=== PATIENT | female | born 1945 | race Caucasian/White ===

== ENCOUNTER 2017-07-09 13:23 | Emergency (ER) | payer OTHER ==
[~2017-07-09] VITALS: Ht 165.1 cm; Wt 87.0 kg
[~2017-07-09 13:23] MED LIST: ATEN-102 PO; CIPR500T4 PO; COZA50TA PO; LEVO.075 PO; LORTA5 PO; MEDR4PAK3 PO; METR-1 PO; MEVA40TA PO; PROT40TA PO; ZOFR4TAB3 SL
[2017-07-09 13:31] VITALS: BP 182/78; PULSE 60; RESP 16; TEMP 98.8; O2SAT 95
--- NOTE | 2017-07-09 13:56 | PD ---
HPI Chief Complaint: Abnormal Results Time Seen by Provider: 13:36 Travel History International Travel<30 days: No Contact w/Intl Traveler<30days: No Traveled to known affect area: No History of Present Illness HPI The patient is a 71-year-old female who presents to the emergency department for elevated blood pressure, headache, and right arm discomfort. The patient was born deaf, daughter translating at bedside with sign language per her request. The patient states she has a history of hypertension, currently takes atenolol, but stopped taking her other medications because they "didn't work out "according to the daughter who is translating. The patient states earlier today she had mild lightheadedness and dizziness, also noticed some right arm discomfort. However, the patient is had some right arm discomfort recently in the shoulder after she fell. The patient states that since she arrived her symptoms have resolved. She denied any chest pain, shortness breath, nausea, vomiting, or focal weakness. She does have a history of bilateral lower extremity neuropathy for 5 years. Symptoms are mild to moderate, possibly exacerbated by elevated blood pressure, and self alleviating. The daughter does state that the patient's systolic blood pressure was greater than 200 prior to arrival. PFSH Past Medical History Hx Anticoagulant Therapy: No Anxiety: No Depression: No Cancer: Yes (HX, UNKNOWN TO WHAT TYPE. 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) Respiratory: No Radiation Therapy: No Thyroid Disease: Yes (HYPOTHYROID) Menopausal: Yes Past Surgical History Abdominal Surgery: Yes (GALLBLADDER) Cardiac Surgery: No Cholecystectomy: Yes Ear Surgery: No Endocrine Surgery: No Eye Surgery: No Genitourinary Surgery: No Gynecologic Surgery: Yes (HYSTERECTOMY) Hysterectomy: Yes Neurologic Surgery: No Oral Surgery: No Thoracic Surgery: No Other Surgery: Yes (BILATERAL CARPAL TUNNEL REPAIR) Social History Alcohol Use: No Tobacco Use: No Substance Use: No Allergies-Medications (Allergen,Severity, Reaction): Coded Allergies: No Known Allergies (Verified Adverse Reaction, Unknown, 07/09/17) Reported Meds & Prescriptions Reported Meds & Active Scripts Active Reported Cozaar (Losartan Potassium) 50 Mg Tab 50 Mg PO DAILY Synthroid (Levothyroxine Sodium) 75 Mcg Tab 75 Mcg PO DAILY Lovastatin 40 Mg Tab 40 Mg PO DAILY Atenolol 50 Mg Tab 50 Mg PO BID Review of Systems Except as stated in HPI: all other systems reviewed are Neg Eyes: No: Blurred Vision HENT: Positive: Lightheadedness, Other (congenitally deaf), No: Headaches Cardiovascular: No: Chest Pain or Discomfort Respiratory: No: Shortness of Breath Gastrointestinal: No: Nausea, Vomiting Musculoskeletal: Positive: Pain (right upper extremity pain), No: Weakness Neurologic: Positive: Other (history of chronic neuropathy 5 years of the lower extremity is bilaterally), No: Paresthesia, Sensory Disturbance Physical Exam Narrative GENERAL: Awake, alert, pleasant 71-year-old female appears her stated age and is in no acute respiratory distress. Unable to hear me. SKIN: Focused skin assessment warm/dry. HEAD: Atraumatic. Normocephalic. EYES: Pupils equal and round. Pupils are 3 mm bilateral and reactive. ENT: No nasal bleeding or discharge. Mucous membranes pink and moist. NECK: Trachea midline. No JVD. No meningeal signs. CARDIOVASCULAR: Regular rate and rhythm. No murmur appreciated. RESPIRATORY: No accessory muscle use. Clear to auscultation. Breath sounds equal bilaterally. GASTROINTESTINAL: Abdomen soft, non-tender, nondistended. No rebound tenderness. MUSCULOSKELETAL: No obvious deformities. No clubbing. No cyanosis. No edema. NEUROLOGICAL: Awake and alert. Unable to hear me. Motor grossly within normal limits. Normal speech. Follows commands without difficulty. Nonfocal. PSYCHIATRIC: Appropriate mood and affect; insight and judgment normal. Data Data Last Documented VS Vital Signs Date Time Temp Pulse Resp B/P (MAP) Pulse Ox O2 Delivery O2 Flow Rate FiO2 07/09/17 14:45 97 Room Air 07/09/17 14:44 54 15 07/09/17 13:31 98.8 Orders Orders Electrocardiogram (07/09/17 13:49) Complete Blood Count With Diff (07/09/17 13:49) Comprehensive Metabolic Panel (07/09/17 13:49) Magnesium (Mg) (07/09/17 13:49) Ckmb (Isoenzyme) Profile (07/09/17 13:49) Troponin I (07/09/17 13:49) Ct Brain W/O Iv Contrast(Rout) (07/09/17 13:49) Ecg Monitoring (07/09/17 13:49) Iv Access Insert/Monitor (07/09/17 13:49) Oximetry (07/09/17 13:49) Sodium Chloride 0.9% Flush (Ns Flush) (07/09/17 14:00) CKMB (07/09/17 13:58) CKMB% (07/09/17 13:58) Labs Laboratory Tests Test 07/09/17 13:58 White Blood Count 5.2 TH/MM3 Red Blood Count 4.29 MIL/MM3 Hemoglobin 12.1 GM/DL Hematocrit 36.3 % Mean Corpuscular Volume 84.6 FL Mean Corpuscular Hemoglobin 28.3 PG Mean Corpuscular Hemoglobin Concent 33.4 % Red Cell Distribution Width 13.2 % Platelet Count 196 TH/MM3 Mean Platelet Volume 7.1 FL Neutrophils (%) (Auto) 64.5 % Lymphocytes (%) (Auto) 23.9 % Monocytes (%) (Auto) 9.5 % Eosinophils (%) (Auto) 1.2 % Basophils (%) (Auto) 0.9 % Neutrophils # (Auto) 3.4 TH/MM3 Lymphocytes # (Auto) 1.2 TH/MM3 Monocytes # (Auto) 0.5 TH/MM3 Eosinophils # (Auto) 0.1 TH/MM3 Basophils # (Auto) 0.0 TH/MM3 CBC Comment DIFF FINAL Differential Comment Blood Urea Nitrogen 13 MG/DL Creatinine 1.00 MG/DL Random Glucose 92 MG/DL Total Protein 7.4 GM/DL Albumin 3.7 GM/DL Calcium Level 8.6 MG/DL Magnesium Level 2.3 MG/DL Alkaline Phosphatase 122 U/L Aspartate Amino Transf (AST/SGOT) 18 U/L Alanine Aminotransferase (ALT/SGPT) 29 U/L Total Bilirubin 0.9 MG/DL Sodium Level 139 MEQ/L Potassium Level 4.2 MEQ/L Chloride Level 103 MEQ/L Carbon Dioxide Level 28.6 MEQ/L Anion Gap 7 MEQ/L Estimat Glomerular Filtration Rate 54 ML/MIN Total Creatine Kinase 109 U/L Creatine Kinase MB 2.2 NG/ML Troponin I LESS THAN 0.02 NG/ML MDM Medical Decision Making Medical Screen Exam Complete: Yes Emergency Medical Condition: Yes Medical Record Reviewed: Yes Interpretation(s) EKG reveals sinus bradycardia with a heart rate of 51. Inverted T-wave in lead 3. Laboratory Tests Test 07/09/17 13:58 White Blood Count 5.2 TH/MM3 Red Blood Count 4.29 MIL/MM3 Hemoglobin 12.1 GM/DL Hematocrit 36.3 % Mean Corpuscular Volume 84.6 FL Mean Corpuscular Hemoglobin 28.3 PG Mean Corpuscular Hemoglobin Concent 33.4 % Red Cell Distribution Width 13.2 % Platelet Count 196 TH/MM3 Mean Platelet Volume 7.1 FL Neutrophils (%) (Auto) 64.5 % Lymphocytes (%) (Auto) 23.9 % Monocytes (%) (Auto) 9.5 % Eosinophils (%) (Auto) 1.2 % Basophils (%) (Auto) 0.9 % Neutrophils # (Auto) 3.4 TH/MM3 Lymphocytes # (Auto) 1.2 TH/MM3 Monocytes # (Auto) 0.5 TH/MM3 Eosinophils # (Auto) 0.1 TH/MM3 Basophils # (Auto) 0.0 TH/MM3 CBC Comment DIFF FINAL Differential Comment Blood Urea Nitrogen 13 MG/DL Creatinine 1.00 MG/DL Random Glucose 92 MG/DL Total Protein 7.4 GM/DL Albumin 3.7 GM/DL Calcium Level 8.6 MG/DL Magnesium Level 2.3 MG/DL Alkaline Phosphatase 122 U/L Aspartate Amino Transf (AST/SGOT) 18 U/L Alanine Aminotransferase (ALT/SGPT) 29 U/L Total Bilirubin 0.9 MG/DL Sodium Level 139 MEQ/L Potassium Level 4.2 MEQ/L Chloride Level 103 MEQ/L Carbon Dioxide Level 28.6 MEQ/L Anion Gap 7 MEQ/L Estimat Glomerular Filtration Rate 54 ML/MIN Total Creatine Kinase 109 U/L Creatine Kinase MB 2.2 NG/ML Troponin I LESS THAN 0.02 NG/ML CT of the brain reveals no acute intracranial disease Differential Diagnosis Differential diagnosis includes hypertension, hypertensive urgency, hypertensive emergency, acute coronary syndrome, intracranial hemorrhage, STEMI , electrolyte abnormality. Narrative Course IV was established, labs are drawn and sent, and the patient was placed on cardiac telemetry monitoring and continuous pulse oximetry monitoring. EKG was ordered and interpreted. CT of the brain was obtained. EKG was unremarkable. CT was negative. Troponin is negative. BUN/creatinine are normal. The patient a longer takes losartan, her blood pressure has elevated once again. Patient's symptoms did resolve, repeat blood pressure was 172/75. I will place the patient on low-dose lisinopril and have advised her to follow-up with a primary physician. Return if symptoms worsen or progress. Diagnosis Primary Impression: Hypertensive urgency Patient Instructions: General Instructions Additional Instructions: lisinopril as directed. Continue home medications as previously directed. Follow-up with her primary physician. Please provide the patient a copy of her CT results and lab results at discharge. Please provide the patient a copy of her CT results and lab results at discharge. Med/Other Pt SpecificInfo: Prescription(s) given Scripts Lisinopril (Lisinopril) 5 Mg Tab 5 MG PO DAILY for Blood Pressure Management, #30 TAB 0 Refills Prov: Eder Tellez MD 07/09/17 Disposition: 01 DISCHARGE HOME Condition: Stable Eder Tellez MD Jul 09, 2017 13:56
[2017-07-09] MEDS ORDERED: SODIUM CHLORIDE 0.9% FLUSH 10 ML FLUSH IVF PRN (14:00)
[2017-07-09 14:04] LABS: AUTOMATED NEUTROPHIL # 3.4 TH/MM3 (1.8-7.7); BASOPHIL % 0.9 % (0.0-2.0); EOSINOPHIL # 0.1 TH/MM3 (0-0.4); EOSINOPHIL % 1.2 % (0.0-4.0); HEMATOCRIT 36.3 % (35.0-46.0); HEMO FLAGS DIFF FINAL; LYMPH % 23.9 % (9.0-44.0); LYMPHOCYTE # 1.2 TH/MM3 (1.0-4.8); MEAN CELL VOLUME 84.6 FL (80.0-100.0); MEAN CORPUSCULAR HEMOGLOBIN 28.3 PG (27.0-34.0); MEAN CORPUSCULAR HGB CONC 33.4 % (32.0-36.0); MONO % 9.5 % (0.0-8.0); NEUT % 64.5 % (16.0-70.0); PLATELET COUNT 196 TH/MM3 (150-450); RED BLOOD COUNT 4.29 MIL/MM3 (4.00-5.30); RED CELL DISTRIBUTION WIDTH 13.2 % (11.6-17.2); WHITE BLOOD COUNT 5.2 TH/MM3 (4.0-11.0)
--- NOTE | 2017-07-09 14:17 | RADRPT ---
EXAM DATE/TIME: 07/09/2017 14:04 [facility] COMPARISON: No previous studies available for comparison. INDICATIONS : Dizziness. RADIATION DOSE: 66.37 CTDIvol (mGy) MEDICAL HISTORY : Hypertension. SURGICAL HISTORY : Cholecystectomy. Hysterectomy. ENCOUNTER: Initial ACUITY: 1 day PAIN SCALE: 0/10 LOCATION: cranial TECHNIQUE: Multiple contiguous axial images were obtained of the head. Using automated exposure control and adj ustment of the mA and/or kV according to patient size, radiation dose was kept as low as reasonably a chievable to obtain optimal diagnostic quality images. DICOM format image data is available electro nically for review and comparison. FINDINGS: CEREBRUM: The ventricles are normal for age. No evidence of midline shift, mass lesion, hemorrhage or acute in farction. No extra-axial fluid collections are seen. POSTERIOR FOSSA: The cerebellum and brainstem are intact. The 4th ventricle is midline. The cerebellopontine angle i s unremarkable. EXTRACRANIAL: The visualized portion of the orbits is intact. SKULL: The calvaria is intact. No evidence of skull fracture. CONCLUSION: No acute intracranial disease. Ronn Mercado MD on July 09, 2017 at 14:15 Board Certified Radiologist. This report was verified electronically.
[2017-07-09 14:22] LABS: CHLORIDE 103 MEQ/L (98-107); POTASSIUM 4.2 MEQ/L (3.5-5.1); SODIUM (NA) 139 MEQ/L (136-145)
[2017-07-09 14:25] LABS: ANION GAP 7 MEQ/L (5-15); BICARBONATE 28.6 MEQ/L (21.0-32.0); MAGNESIUM 2.3 MG/DL (1.5-2.5)
[2017-07-09 14:26] LABS: BLOOD UREA NITROGEN 13 MG/DL (7-18)
[2017-07-09 14:28] LABS: ALT (GPT) 29 U/L (10-53); AST (GOT) 18 U/L (15-37)
[2017-07-09 14:29] LABS: GLOMERULAR FILTRATION RATE 54 ML/MIN (>89)
[2017-07-09 14:30] LABS: TOTAL BILIRUBIN ADULT 0.9 MG/DL (0.2-1.0)
[2017-07-09 14:31] LABS: ALKALINE PHOSPHATASE 122 U/L (45-117); CREATINE KINASE 109 U/L (26-192)
[2017-07-09 14:44] VITALS: BP 172/75; PULSE 54; RESP 15; O2SAT 96
[2017-07-09 14:44] LABS: CKMB 2.2 NG/ML (0.5-3.6)
[2017-07-09 14:45] VITALS: O2SAT 97
[2017-07-09] MEDS ORDERED: LISI-519 PO (15:27)
[2017-07-09 15:45] VITALS: BP 179/80
--- NOTE | 2017-07-10 13:33 | EKG ---
Date Performed: 07/09/2017 Time Performed: 14:01:37 PTAGE: 71 years EKG: SINUS BRADYCARDIA BORDERLINE ECG Compared to prior tracing no significant change PREVIOUS TRACING : 06/05/2014 20.13 DOCTOR: Dino Kirkland Interpretating Date/Time 07/10/2017 13:30:15
== END 2017-07-09 15:56 | disposition home or self-care (01) ==
LOC: PHED 13:23
DX: I16.0 Hypertensive urgency (principal); I10 Essential (primary) hypertension; E03.9 Hypothyroidism, unspecified; R00.1 Bradycardia, unspecified
CPT/HCPCS: 70450; 80053; 82550; 82552; 83735; 84484; 85025; 93005; 99285

== ENCOUNTER 2018-07-24 01:43 | Observation (INO) ==
[2018-07-24] MEDS ORDERED: Morphine Inj 4 MG/ML Vial IV.PUSH ONE (01:57)
--- NOTE | 2018-07-24 02:04 | ED ---
HPI General Chief Complaint: Chest Pain Stated Complaint: BP High Time Seen by Provider: 07/24/18 01:52 Source: patient Mode of arrival: ambulatory Limitations: other History of Present Illness HPI narrative: The patient is a 72-year-old female who presents to the emergency department for chest pain. The patient uses sign language to communicate, the history was obtained via a orange picking supervisor that perform sign language at bedside via computer. The patient states that she developed substernal chest pain 2 hours ago while at rest. The chest pain is substernal, described as heaviness, nonradiating, associated shortness of breath and mild nausea. The patient states she had a heart attack 3 years ago and they gave her medications in the emergency department which resolved the pain, however, she states she did not have a cardiac catheterization or stress test at that time. 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 Symptoms are moderate, slightly improving, but have not completely resolved. The patient also states she had a bowel movement earlier today which was hard to control secondary to the pain. However, she denies any acute abdominal pain. MD complaint: Reports chest pain Onset (ago): hour(s) Duration: constant and improved Onset: during rest Pain location: Reports substernal Severity: moderate Severity scale (1-10): 7 Quality: Reports heaviness Pain radiation: Reports none Relieving factors: nothing Exacerbating factors: nothing Associated symptoms: Reports nausea and dyspnea Treatments prior to arrival chest pain: Reports none Related Data Home Medications Medication Instructions Recorded Confirmed Unable to Obtain Home Meds 07/24/18 07/24/18 Allergies Allergy/AdvReac Type Severity Reaction Status Date / Time No Known Allergies Allergy Verified 07/24/18 02:04 Review of Systems ROS: all other systems reviewed are negative [facility] Medical History Medical History History of high blood pressure (Acute) History of high cholesterol (Acute) Hx of hysterectomy (Acute) Hx of myocardial infarction (Acute) Surgical History Surgical History History of bladder surgery (Acute) Social History Social History Substance History: No History of Abuse Smoking Status: Never smoker How Often Do You Have a Drink Containing Alcohol: Never Recent Travel in [facility] within the Last 8 Weeks: No Recent Out of Country Travel within the Last 8 Weeks: No Exam Narrative Exam Narrative: GENERAL: Awake, alert, nontoxic-appearing 72-year-old female who appears her stated age and is in no acute respiratory distress. SKIN: Focused skin assessment warm/dry. HEAD: Atraumatic. Normocephalic. EYES: Pupils equal and round. No scleral icterus. No injection or drainage. ENT: No nasal bleeding or discharge. Mucous membranes pink and moist. NECK: Trachea midline. No JVD. CARDIOVASCULAR: Regular, bradycardic with a heart rate in the 50s. No audible murmurs. RESPIRATORY: No accessory muscle use. Clear to auscultation. Breath sounds equal bilaterally. GASTROINTESTINAL: Abdomen soft, non-tender, nondistended. No epigastric tenderness. No guarding rigidity. MUSCULOSKELETAL: No obvious deformities. No clubbing. No cyanosis. No edema. NEUROLOGICAL: Awake and alert. No obvious cranial nerve deficits. Motor grossly within normal limits. Patient communicates via sign language. PSYCHIATRIC: Appropriate mood and affect; insight and judgment normal. Course Initial Documented Vital Signs Pulse Oximetry 98 07/24/18 01:57 Last Documented Vital Signs Temperature 98.6 F 07/24/18 02:01 Pulse Rate 60 07/24/18 02:39 Respiratory Rate 16 07/24/18 02:39 Blood Pressure 180/91 H 07/24/18 02:39 Pulse Oximetry 96 07/24/18 02:[address] [facility] Narrative Medical decision making narrative: IV was established, labs are drawn and sent, and the patient was placed on cardiac telemetry monitoring and continuous pulse oximetry monitoring. EKG was ordered and interpreted. Chest x-ray was obtained. Troponin and CPK were sent to lab. The patient received aspirin, nitroglycerin sublingual, and Nitropaste. The patient's chest x-ray was unremarkable. The patient's blood pressure did improve and her pain came down to 2/10. EKG revealed sinus bradycardia, no evidence of STEMI. The patient's initial troponin and CPK were unremarkable. The patient will be a 23-hour observation to the chest pain center for serial cardiac enzymes and possible stress test. This plan of care and the findings were relayed to the patient via sign language, she is agreeable to the plan of care. The patient has [employer] , therefore, [facility] were paged for 23-hour observation to the chest pain center. I discussed the patient with Dr. Vigil who agrees with 23-hour observation to the chest pain center. Patient's blood pressure did rebound to a systolic of 200 with a diastolic in the 90s and heart rate in the 50s, patient would not tolerate labetalol, therefore, was administered Vasotec 2.5 mg intravenously. The patient's chest x-ray did not reveal a widened mediastinum appeared comfortable, I do not believe this is a dissection. There was no tachycardia or hypoxia, I do not believe this is a pulmonary embolism. Medical Screen Exam Complete: Yes Emergency Medical Condition: Yes Differential Diagnosis Differential Diagnosis: Differential diagnosis includes ACS, STEMI, hypertensive urgency, hypertensive emergency, dissection, pancreatitis, GERD, esophageal spasm, pneumonia, pulmonary embolism. Lab Data Lab results reviewed: Yes I reviewed the patient's lab results. Lab results narrative: Troponin and CPK were unremarkable Result diagrams: 07/24/18 02:15 07/24/18 02:15 Lab Results 07/24/18 07/24/18 07/24/18 Range/Units 02:15 02:15 02:15 CBC w Diff Auto diff final WBC 4.6 (4.0-11.0) th/mm3 RBC 4.04 (4.00-5.30) mil/mm3 Hgb 11.8 (11.6-15.3) gm/dL Hct 34.1 L (35.0-46.0) % MCV 84.2 (80.0-100.0) fL MCH 29.1 (27.0-34.0) pg MCHC 34.5 (32.0-36.0) % RDW 13.5 (11.6-17.2) % Plt Count 175 (150-450) th/mm3 MPV 8.0 (7.0-11.0) fL Neut % (Auto) 56.2 (16.0-70.0) % Lymph % (Auto) 32.7 (9.0-44.0) % [place] % (Auto) 9.2 H (0.0-8.0) % Eos % (Auto) 1.5 (0.0-4.0) % Baso % (Auto) 0.4 (0.0-2.0) % Neut # (Auto) 2.6 (1.8-7.7) th/mm3 Lymph # (Auto) 1.5 (1.0-4.8) th/mm3 [place] # (Auto) 0.4 (0.0-0.9) th/mm3 Eos # (Auto) 0.1 (0.0-0.4) th/mm3 Baso # (Auto) 0.0 (0.0-0.2) th/mm3 WBC Differential . Differential Comment . PT 9.7 L (9.8-11.6) sec INR 1.0 Ratio APTT 23.6 (23.4-31.7) sec Sodium 138 (136-145) meq/L Potassium 3.9 (3.5-5.1) meq/L Chloride 105 (98-107) meq/L Carbon Dioxide 24.9 (21.0-32.0) meq/L Anion Gap 8 (5-15) meq/L BUN 15 (7-18) mg/dL Creatinine 1.00 (0.50-1.00) mg/dL Estimated GFR 54 L (>89) mL/min Random Glucose 113 H (74-106) mg/dL Calcium 8.4 L (8.5-10.1) mg/dL Magnesium (1.5-2.5) mg/dL Total Bilirubin 0.5 (0.2-1.0) mg/dL AST 13 L (15-37) U/L ALT 22 (10-53) U/L Alkaline Phosphatase 112 (45-117) U/L Total Creatine Kinase (26-192) U/L Troponin I Less than 0.02 L (0.02-0.05) ng/mL Total Protein 7.1 (6.4-8.2) g/dL Albumin 3.6 (3.4-5.0) g/dL Lipase 137 (73-393) U/L 18 Range/Units 02:15 CBC w Diff WBC (4.0-11.0) th/mm3 RBC (4.00-5.30) mil/mm3 Hgb (11.6-15.3) gm/dL Hct (35.0-46.0) % MCV (80.0-100.0) fL MCH (27.0-34.0) pg MCHC (32.0-36.0) % RDW (11.6-17.2) % Plt Count (150-450) th/mm3 MPV (7.0-11.0) fL Neut % (Auto) (16.0-70.0) % Lymph % (Auto) (9.0-44.0) % [place] % (Auto) (0.0-8.0) % Eos % (Auto) (0.0-4.0) % Baso % (Auto) (0.0-2.0) % Neut # (Auto) (1.8-7.7) th/mm3 Lymph # (Auto) (1.0-4.8) th/mm3 [place] # (Auto) (0.0-0.9) th/mm3 Eos # (Auto) (0.0-0.4) th/mm3 Baso # (Auto) (0.0-0.2) th/mm3 WBC Differential Differential Comment PT (9.8-11.6) sec INR Ratio APTT (23.4-31.7) sec Sodium (136-145) meq/L Potassium (3.5-5.1) meq/L Chloride (98-107) meq/L Carbon Dioxide (21.0-32.0) meq/L Anion Gap (5-15) meq/L BUN (7-18) mg/dL Creatinine (0.50-1.00) mg/dL Estimated GFR (>89) mL/min Random Glucose (74-106) mg/dL Calcium (8.5-10.1) mg/dL Magnesium 2.2 (1.5-2.5) mg/dL Total Bilirubin (0.2-1.0) mg/dL AST (15-37) U/L ALT (10-53) U/L Alkaline Phosphatase (45-117) U/L Total Creatine Kinase 97 (26-192) U/L Troponin I (0.02-0.05) ng/mL Total Protein (6.4-8.2) g/dL Albumin (3.4-5.0) g/dL Lipase (73-393) U/L Imaging Data Attestation: I personally reviewed and interpreted this imaging study as follows : My impression: No acute cardiopulmonary findings noted Radiologist's impression: Chest X-Ray 07/24/18 01:57 CONCLUSION: No acute cardiopulmonary disease demonstrated. ECG Data EKG Prior to Arrival: No Attestation: I personally reviewed and interpreted this ECG as follows: Interpretation: EKG reveals sinus bradycardia with a heart rate of 55. Inverted T wave in lead III. Discharge Plan Discharge Disposition Patient Disposition: 30 Still Patient Discharge Condition Condition: Stable Discharge Details Diagnosis: Chest pain Physicians Team ED Provider: Eder Tellez Primary Care Provider: Farzad Guzman Rxs /Orders / Referrals /Forms Prescriptions: No Action Unable to Obtain Home Meds RF: 0 Discharge Instructions Patient Printed Instructions: Chest Pain (ED) Status ED Status: Admitted Observation Patient
[2018-07-24 02:25] LABS: Baso % (Auto) 0.4 % (0.0-2.0); Eos # (Auto) 0.1 th/mm3 (0.0-0.4); Eos % (Auto) 1.5 % (0.0-4.0); Hematocrit 34.1 % (35.0-46.0); Hemoglobin 11.8 gm/dL (11.6-15.3); Lymph # (Auto) 1.5 th/mm3 (1.0-4.8); Lymph % (Auto) 32.7 % (9.0-44.0); Mean Corpuscular HGB Conc 34.5 % (32.0-36.0); Mean Corpuscular Hemoglobin 29.1 pg (27.0-34.0); Mean Corpuscular Volume 84.2 fL (80.0-100.0); Mono # (Auto) 0.4 th/mm3 (0.0-0.9); Mono % (Auto) 9.2 % (0.0-8.0); Neut # (Auto) 2.6 th/mm3 (1.8-7.7); Neut % (Auto) 56.2 % (16.0-70.0); Platelet Count 175 th/mm3 (150-450); Red Blood Count 4.04 mil/mm3 (4.00-5.30); Red Cell Distribution Width 13.5 % (11.6-17.2); White Blood Count 4.6 th/mm3 (4.0-11.0)
[2018-07-24 02:29] LABS: Chloride 105 meq/L (98-107); Potassium 3.9 meq/L (3.5-5.1); Sodium 138 meq/L (136-145)
[2018-07-24 02:32] LABS: Magnesium 2.2 mg/dL (1.5-2.5)
[2018-07-24 02:33] LABS: Albumin 3.6 g/dL (3.4-5.0); Anion Gap 8 meq/L (5-15); Blood Urea Nitrogen 15 mg/dL (7-18); Calcium 8.4 mg/dL (8.5-10.1); Carbon Dioxide 24.9 meq/L (21.0-32.0); Glucose,Random 113 mg/dL (74-106); Lipase 137 U/L (73-393)
[2018-07-24 02:36] LABS: Alanine Aminotransferase 22 U/L (10-53); Aspartate Aminotransferase 13 U/L (15-37); Glomerular Filtration Rate 54 mL/min (>89)
[2018-07-24 02:38] LABS: Total Protein 7.1 g/dL (6.4-8.2)
[2018-07-24 02:39] LABS: Alkaline Phosphatase 112 U/L (45-117)
--- NOTE | 2018-07-24 02:39 | XR ---
EXAM DATE: 07/24/2018 2:36 AM EST AGE/SEX: 72 years / Female INDICATIONS: Chest pain starting today CLINICAL DATA: This is the patient's initial encounter. Patient reports that signs and symptoms have been present for 1 day and indicates a pain score of 10/10. MEDICAL/SURGICAL HISTORY: Hypertension. None. COMPARISON: [facility], CHEST SINGLE AP, 11/16/2011. . FINDINGS: A single AP view of the chest demonstrates the lungs to be symmetrically aerated without evidence of mass, infiltrate or effusion. The cardiomediastinal contours are unremarkable. Osseous structures a re intact. CONCLUSION: No acute cardiopulmonary disease demonstrated. Electronically signed by: Konstantin Asif MD 07/24/2018 2:38 AM EST
[2018-07-24 02:54] LABS: Activated Partial Thrombo Time 23.6 sec (23.4-31.7); Prothrombin Time 9.7 sec (9.8-11.6)
[2018-07-24] MEDS ORDERED: Acetaminophen 500 MG Tablet PO PRN (04:00)
[2018-07-24] MEDS ORDERED: Morphine Sulfate Inj 2 MG/ML Vial IV.PUSH PRN (04:15)
[2018-07-24 08:13] LABS: Creatine Kinase 78 U/L (26-192)
[2018-07-24] MEDS ORDERED: Aspirin 325 MG Tablet PO SCH (09:00)
[2018-07-24] MEDS ORDERED: Famotidine 20 MG Tablet PO SCH (09:00)
--- NOTE | 2018-07-24 09:19 | P.HP ---
History of Present Illness Primary Care Physician: Farzad Guzman MD Chief Complaint: Chest pain History of Present Illness: This is a 72-year-old female patient with a known medical history of hypothyroidism, hypertension who presented to the ED with complaints of chest pain. Patient is deaf and [employer] interpreting services used for communication. Patient states she was sitting watching TV last evening when she developed a midsternal chest pain that was heavy in nature, denied any radiation of pain, admitted to associated shortness of breath and nausea with the pain. Patient states that the pain lasted roughly 2 hours and resolved after presented to the ED in given nitroglycerin. Patient does state that 3 years ago she had similar symptoms, underwent a cardiac treadmill stress test which was negative for any ischemia. Denies any recent illness including fever, chills, cough, headache, abdominal pain, nausea, vomiting, diarrhea or dysuria. Patient lives home alone and is able to perform all ADLs per self. Denies any tobacco abuse. Family history negative for any cardiovascular disease. Follows closely with her PCP. No new changes to her medicines. At the time of assessment chest pain has resolved. - Diagnosis (1) Chest pain Review of Systems All other systems reviewed negative except as stated in HPI PMFSH - History History Provided By: Patient - Medical History Medical History: Medical History (Last Reviewed 07/24/18 @ 09:15 by Suzanne Reagan) History of high blood pressure History of high cholesterol Hx of hysterectomy - Surgical History Surgical History: Surgical History (Last Updated 07/24/18 @ 09:21 by Suzanne Reagan) History of bladder surgery Hx of cholecystectomy Status post carpal tunnel release - Family History Family History: Family History (Last Updated 07/24/18 @ 09:15 by Suzanne Reagan) Other Family history in first degree relatives is unremarkable - Social History I have reviewed the patient's Social History: Yes - Tobacco History Second Hand Smoke Exposure: No Smoking Status: Never smoker - Alcohol History How Often Do You Have a Drink Containing Alcohol: Never - Substance Use History Substance History: No History of Abuse - Travel History Recent Travel in the [facility] Within the Last 8 Weeks: No Recent Travel Out of the Country Within the Last 8 Weeks: No - Immunization History Tetanus Immunization: Unsure Medications and Allergies Active Medications: Active Medications Acetaminophen (Tylenol) 500 mg PO Q4H PRN PRN Reason: HEADACHE Hydrocodone Bitart/Acetaminophen (Saxis 7.5/325) 1 tab PO Q4H PRN PRN Reason: PAIN SCALE 1 TO 7 Aspirin (Aspirin) 325 mg PO DAILY JULIANNE Famotidine (Pepcid) 20 mg PO BID JULIANNE Morphine Sulfate (Morphine Inj) 2 mg IV.PUSH Q4H PRN PRN Reason: PAIN 8-10 Nitroglycerin (Nitrostat Sl) 0.4 mg SL Q5M PRN PRN Reason: CHEST PAIN Ondansetron HCl (Zofran Inj) 4 mg IV.PUSH Q6H PRN PRN Reason: NAUSEA Sodium Chloride (Ns Flush) 2 ml IV.FLUSH UNSCH PRN PRN Reason: FLUSH AFTER USING IV ACCESS Sodium Chloride (Ns Flush) 2 ml IV.FLUSH BID JULIANNE Sodium Chloride (Ns Flush) 2 ml IV.FLUSH PRN PRN PRN Reason: FLUSH AFTER USING IV ACCESS Allergies Allergy/AdvReac Type Severity Reaction Status Date / Time No Known Allergies Allergy Verified 07/24/18 02:04 Home Medications Medication Instructions Recorded Confirmed Type Unable to Obtain Home Meds 07/24/18 07/24/18 History Exam Vital signs: Vital Signs 07/24/18 01:57 07/24/18 02:01 07/24/18 02:18 Temperature 98.6 F Pulse Rate 57 L 71 Respiratory Rate 17 16 Blood Pressure 204/95 H 194/95 H Pulse Oximetry 98 98 100 07/24/18 02:39 07/24/18 03:23 07/24/18 03:40 Temperature Pulse Rate 60 53 L 56 L Respiratory Rate 16 16 16 Blood Pressure 180/91 H 165/76 H 160/72 H Pulse Oximetry 96 96 98 07/24/18 04:00 07/24/18 04:09 07/24/18 05:08 Temperature 97.7 F Pulse Rate 51 L 54 L Respiratory Rate 20 Blood Pressure 154/70 H Pulse Oximetry 96 96 07/24/18 08:00 Temperature 97.4 F L Pulse Rate 50 L Respiratory Rate 17 Blood Pressure 147/72 H Pulse Oximetry 19 L Intake & Output 07/23/18 07/24/18 07/24/18 18:59 06:59 18:59 Intake Total 240 / 240 Output Total 200 / 200 Balance 40 / 40 Weight 83.6 kg Intake: Oral 240 / 240 Output: Urine 200 / 200 Other: Date of Last Bowel Movement 07/23/18 Weight On Admission 83.6 kg Narrative: GENERAL: Well-developed, well-nourished patient in NAD. Pleasant. SKIN: Warm and dry. No rash. HEAD: Normocephalic. Atraumatic. EYES: Pupils equal and round. No scleral icterus. No injection or drainage. ENT: No nasal bleeding or discharge. Mucous membranes pink and moist. NECK: Supple. Trachea midline. CARDIOVASCULAR: Regular rate and rhythm. S1, S2 noted. No murmur appreciated. No reproducible chest pain. RESPIRATORY: No accessory muscle use. Clear to auscultation. Breath sounds equal bilaterally. GASTROINTESTINAL: Abdomen soft, non-tender, nondistended. Normoactive bowel sounds x4. MUSCULOSKELETAL: No obvious deformities. Extremities without clubbing, cyanosis , or edema. NEUROLOGICAL: Awake and alert. No obvious cranial nerve deficits. Motor grossly within normal limits. 5/5 muscle strength in bilateral upper and lower extremities. Normal speech. PSYCHIATRIC: Appropriate mood and affect; insight and judgment normal. Results - Labs CBC & Chem 7: 07/24/18 02:15 07/24/18 02:15 Labs: Laboratory Results - last 24 hr 07/24/18 07/24/18 07/24/18 02:15 02:15 02:15 CBC w Diff Auto diff final WBC 4.6 RBC 4.04 Hgb 11.8 Hct 34.1 L MCV 84.2 MCH 29.1 MCHC 34.5 RDW 13.5 Plt Count 175 MPV 8.0 Neut % (Auto) 56.2 Lymph % (Auto) 32.7 Dougherty % (Auto) 9.2 H Eos % (Auto) 1.5 Baso % (Auto) 0.4 Neut # (Auto) 2.6 Lymph # (Auto) 1.5 Dougherty # (Auto) 0.4 Eos # (Auto) 0.1 Baso # (Auto) 0.0 WBC Differential . Differential Comment . PT 9.7 L INR 1.0 APTT 23.6 Sodium 138 Potassium 3.9 Chloride 105 Carbon Dioxide 24.9 Anion Gap 8 BUN 15 Creatinine 1.00 Estimated GFR 54 L Random Glucose 113 H Calcium 8.4 L Magnesium Total Bilirubin 0.5 AST 13 L ALT 22 Alkaline Phosphatase 112 Total Creatine Kinase Troponin I Less than 0.02 L Total Protein 7.1 Albumin 3.6 Lipase 137 07/24/18 07/24/18 02:15 07:20 CBC w Diff WBC RBC Hgb Hct MCV MCH MCHC RDW Plt Count MPV Neut % (Auto) Lymph % (Auto) Dougherty % (Auto) Eos % (Auto) Baso % (Auto) Neut # (Auto) Lymph # (Auto) Dougherty # (Auto) Eos # (Auto) Baso # (Auto) WBC Differential Differential Comment PT INR APTT Sodium Potassium Chloride Carbon Dioxide Anion Gap BUN Creatinine Estimated GFR Random Glucose Calcium Magnesium 2.2 Total Bilirubin AST ALT Alkaline Phosphatase Total Creatine Kinase 97 78 Troponin I Less than 0.02 L Total Protein Albumin Lipase - Imaging Impressions Chest X-Ray 07/24/18 01:57 CONCLUSION: No acute cardiopulmonary disease demonstrated. Caprini VTE Risk Assessment Caprini VTE Risk Assessment: Moderate/High Risk (score >= 2) Caprini Risk Assessment Model: Point Value = 1 Point Value = 2 Point Value = 3 Point Value = 5 Age 41-60 Minor surgery BMI > 25 kg/m2 Swollen legs Varicose veins or History of unexplained or recurrent spontaneous Oral contraceptives or hormone replacement Sepsis (< 1 month) Serious lung disease, including pneumonia (< 1 month) Abnormal pulmonary function Acute myocardial infarction Congestive heart failure (< 1 month) History of inflammatory bowel disease Medical patient at bed rest Age 61-74 Arthroscopic surgery Major open surgery (> 45 min) Laparoscopic surgery (> 45 min) Malignancy Confined to bed (> 72 hours) Immobilizing plaster cast Central venous access Age >= 75 History of VTE Family history of VTE Factor V Leiden Prothrombin [id number] Lupus anticoagulant Anticardiolipin antibodies Elevated serum homocysteine Heparin-induced thrombocytopenia Other congenital or acquired thrombophilia Stroke (< 1 month) Elective arthroplasty Hip, pelvis, or leg fracture Acute spinal cord injury (< 1 month) Prophylaxis Regimen: Total Risk Factor Score Risk Level Prophylaxis Regimen 0-1 Low Early ambulation 2 Moderate Order ONE of the following: *Sequential Compression Device (SCD) *Heparin 5000 units SQ BID 3-4 Higher Order ONE of the following medications: *Heparin 5000 units SQ TID *Enoxaparin/Lovenox 40 mg SQ daily (WT < 150 kg, CrCl > 30 mL/min) *Enoxaparin/Lovenox 30 mg SQ daily (WT < 150 kg, CrCl > 10-29 mL/min) *Enoxaparin/Lovenox 30 mg SQ BID (WT < 150 kg, CrCl > 30 mL/min) AND/OR *Sequential Compression Device (SCD) 5 or more Highest Order ONE of the following medications: *Heparin 5000 units SQ TID (Preferred with Epidurals) *Enoxaparin/Lovenox 40 mg SQ daily (WT < 150 kg, CrCl > 30 mL/min) *Enoxaparin/Lovenox 30 mg SQ daily (WT < 150 kg, CrCl > 10-29 mL/min) *Enoxaparin/Lovenox 30 mg SQ BID (WT < 150 kg, CrCl > 30 mL/min) AND *Sequential Compression Device (SCD) Assessment and Plan - Assessment (1) Chest pain Code(s): R07.9 - Chest pain, unspecified Status: Acute - Plan This is a 72-year-old female patient with: Chest pain, atypical -Patient has been admitted to the chest pain center for observation. -Serial EKGs and serial troponins have been ordered for ruling out ACS purposes. Initial 2 troponins flat. Continue to monitor trend. -EKG reviewed, showing sinus bradycardia, controlled rate, no ST changes to indicate any ischemia. -Chest x-ray reviewed showing no acute cardiopulmonary disease. Continue on cardiac telemetry overnight, no arrhythmias noted. Will continue. -Patient has a history of hypertension, hyperlipidemia, no recent stress test. -If ACS ruled out with serial EKGs and serial troponins, patient will undergo a cardiac Lexiscan to further rule out any ischemia. -All chest pain has resolved. Was given aspirin and nitroglycerin in ED. continue daily aspirin. Morphine IV and nitroglycerin available per pain scale. -CBC and BMP reviewed, essentially unremarkable. -Further hospitalization and treatment plan will depend on nuclear imaging results. Patient is stable this time agreeable to plan. Bradycardia -EKG showing some bradycardia, telemetry showing bradycardia with heart rate in the 50s. -Will hold home atenolol. Continue to monitor. Hypertension, chronic: Will continue home medications. Hyperlipidemia, chronic: We will continue home statin. DVT prophylaxis: SCDs. (1) Chest pain Qualifiers: Chest pain type: unspecified Qualified Code(s): R07.9 - Chest pain, unspecified
[2018-07-24 10:22] LABS: Creatine Kinase 77 U/L (26-192)
[2018-07-24] MEDS ORDERED: Regadenoson Inj 0.4 MG/5 ML Syringe IV.PUSH ONE (12:45)
--- NOTE | 2018-07-24 13:54 | NM ---
EXAM DATE: 07/24/2018 1:50 PM EST AGE/SEX: 72 years / Female INDICATIONS:Angina. . Midsternal chest pain. CLINICAL DATA: This is the patient's initial encounter. Patient reports that signs and symptoms have been present for 1 day and indicates a pain score of 5/10. MEDICAL/SURGICAL HISTORY: Hypertension. Hysterectomy. COMPARISON: No prior exams available for comparison. DOSE: 8.2 mCi Tc 99m Myoview at rest 26.5 mCi [id number] at stress 0.4 mg Lexiscan STRESS SYMPTOMS: Nausea, vomiting and weak. EJECTION FRACTION: >70 % TECHNIQUE: The patient underwent pharmacologic stress with infusion of prescribed dose. Continuous ECG tracing was monitored during stress. Gated SPECT imaging was performed after stress and conventi onal SPECT imaging was performed at rest. The examination was performed on a SPECT/CT scanner, both attenuation and non-corrected datasets were reviewed. FINDINGS: Distribution: The maximum perfused segment at stress is in the inferior wall. Perfusion Study: The pattern of perfusion at stress is within normal limits. Gated Study: There are intact wall motion and wall thickening without hypokinetic or dyskinetic segm ents. The ejection fraction is calculated at >70%. RISK CATEGORY: Low (<1% Annual Motality Rate) CONCLUSION: 1. No reversible perfusion defect to indicate stress-induced myocardial ischemia identified. Electronically signed by: Atif Fallon MD 07/24/2018 1:53 PM EST
--- NOTE | 2018-07-24 14:46 | ECG ---
Date Performed: 07/24/2018 Time Performed: 09:07:12 PTAGE: 72 years EKG: SINUS BRADYCARDIA BORDERLINE ECG Since the PREVIOUS TRACING , no significant change noted PREVIOUS TRACIN07/24/2018 04.59 DOCTOR: Laura Chapa Interpretating Date/Time 07/24/2018 14:33:51
--- NOTE | 2018-07-24 14:46 | ECG ---
Date Performed: 07/24/2018 Time Performed: 04:59:56 PTAGE: 72 years EKG: SINUS BRADYCARDIA BORDERLINE ECG Since the PREVIOUS TRACING , no significant change noted PREVIOUS TRACIN07/09/2017 14.01 DOCTOR: Laura Chapa Interpretating Date/Time 07/24/2018 14:33:59
--- NOTE | 2018-07-24 14:46 | ECG ---
Date Performed: 07/24/2018 Time Performed: 01:59:13 PTAGE: 72 years EKG: SINUS BRADYCARDIA BORDERLINE ECG Since the PREVIOUS TRACING , no significant change noted PREVIOUS TRACING DOCTOR: Laura Chapa Interpretating Date/Time 07/24/2018 14:34:09
[2018-07-24 15:41] VITALS: BP 168/78; PULSE 63; RESP 19; TEMP 98.5; O2SAT 95
[2018-07-24] MEDS ORDERED: amLODIPine 5 MG Tablet PO SCH (16:00)
--- NOTE | 2018-07-25 10:42 | TR ---
Date Performed: 07/24/2018 Time Performed: 13:04:41 DOCTOR: Jimenez Mabry DRUG LIST: CLINICAL HISTORY: REASON FOR TEST: REASON FOR ENDING: OBSERVATION: CONCLUSION: COMMENTS: Lexiscan stress test was performed under standard four minute protocol. Radionuclide was injected one minute prior to ending the test. No electrocardiographic abormalities were present t o suggest ischemia. Nuclear imaging and interpretation are pending.
== END 2018-07-24 16:46 | disposition home or self-care (01) ==
LOC: PHED 01:43 → PHEDA 01:43 → PH3 03:54
PROVIDERS: ADMIT Hospitalist; ATTEND Hospitalist
DX: E03.9 Hypothyroidism, unspecified; R00.1 Bradycardia, unspecified; E78.5 Hyperlipidemia, unspecified; I25.2 Old myocardial infarction; H91.93 Unspecified hearing loss, bilateral; R07.89 Other chest pain; I10 Essential (primary) hypertension

== ENCOUNTER 2018-07-27 01:44 | Observation (INO) ==
[2018-07-27] MEDS ORDERED: Labetalol HCl Inj 100 MG/20 ML Vial IV.PUSH ONE (01:58)
[2018-07-27 02:17] LABS: Baso # (Auto) 0.1 th/mm3 (0.0-0.2); Baso % (Auto) 1.1 % (0.0-2.0); Eos # (Auto) 0.1 th/mm3 (0.0-0.4); Eos % (Auto) 1.7 % (0.0-4.0); Hematocrit 37.7 % (35.0-46.0); Hemoglobin 12.6 gm/dL (11.6-15.3); Lymph # (Auto) 1.5 th/mm3 (1.0-4.8); Lymph % (Auto) 26.8 % (9.0-44.0); Mean Corpuscular HGB Conc 33.4 % (32.0-36.0); Mean Corpuscular Hemoglobin 28.7 pg (27.0-34.0); Mean Corpuscular Volume 85.9 fL (80.0-100.0); Mean Platelet Volume 7.9 fL (7.0-11.0); Mono # (Auto) 0.3 th/mm3 (0.0-0.9); Mono % (Auto) 6.2 % (0.0-8.0); Neut # (Auto) 3.6 th/mm3 (1.8-7.7); Neut % (Auto) 64.2 % (16.0-70.0); Platelet Count 178 th/mm3 (150-450); Red Blood Count 4.39 mil/mm3 (4.00-5.30); Red Cell Distribution Width 13.4 % (11.6-17.2); White Blood Count 5.6 th/mm3 (4.0-11.0)
[2018-07-27 02:27] LABS: Chloride 104 meq/L (98-107); Potassium 3.5 meq/L (3.5-5.1); Sodium 139 meq/L (136-145)
[2018-07-27 02:30] LABS: Albumin 3.9 g/dL (3.4-5.0); Anion Gap 11 meq/L (5-15); Blood Urea Nitrogen 15 mg/dL (7-18); Calcium 8.6 mg/dL (8.5-10.1); Carbon Dioxide 24.2 meq/L (21.0-32.0); Glucose,Random 107 mg/dL (74-106)
--- NOTE | 2018-07-27 02:32 | XR ---
EXAM DATE: 07/27/2018 2:28 AM EST AGE/SEX: 72 years / Female INDICATIONS: Increased heart rate. CLINICAL DATA: This is the patient's initial encounter. Patient reports that signs and symptoms have been present for 1 day and indicates a pain score of 0/10. MEDICAL/SURGICAL HISTORY: None. None. COMPARISON: [facility], CHEST 1V SINGLE AP, 07/24/2018. . FINDINGS: Single AP view the chest. Low lung volumes. The lungs are clear. Cardiomediastinal silhou ette within normal limits. No evidence of pleural effusion or pneumothorax. CONCLUSION: No acute cardiopulmonary disease identified. Electronically signed by: Benito Pierson MD 07/27/2018 2:31 AM EST
[2018-07-27 02:33] LABS: Alanine Aminotransferase 23 U/L (10-53); Aspartate Aminotransferase 20 U/L (15-37); Glomerular Filtration Rate 54 mL/min (>89)
[2018-07-27 02:35] LABS: Total Protein 7.9 g/dL (6.4-8.2)
[2018-07-27 02:36] LABS: Alkaline Phosphatase 122 U/L (45-117)
--- NOTE | 2018-07-27 02:48 | ED ---
HPI General Chief Complaint: Hypertension Stated Complaint: fast heart beac Time Seen by Provider: 07/27/18 01:58 Source: patient Limitations: physical limitation (deaf) History of Present Illness HPI narrative: pt patient is a 72-year-old female who is deaf she has a history of hypertension she recently was in our hospital admitted had a stress test apparently she described she had a bad reaction to the Persantine it seems that after that past she was able to tolerate the stress test and she says does not really know the results of that stress test. Patient awoke tonight heart racing comes into the ER heart rate is 107 and she is hypertensive at 229/107 she is given labetalol 10 mg IV push and then we get the sign pneumatic hoist operator onto the phone and iPad to do the rest of our history HPI she says she still is feeling somewhat tachycardia a rapid heart rate even after the 10 of labetalol her heart rate on the monitor at this time is 74 and her blood pressure is 180/ 80 and yet she still feels the palpitations. She reports when she awoke from sleep with the palpitations she took her blood pressure and it was very high. However she reports that her heart rate was only 107 on her home blood pressure cuff, Pt has history of HTN and CAD and cholestrerol Related Data Home Medications Medication Instructions Recorded Confirmed doxazosin 2 mg PO DAILY 07/24/18 07/27/18 levothyroxine 75 mcg PO DAILY 07/24/18 07/27/18 losartan 100 mg PO DAILY 07/24/18 07/27/18 lovastatin 40 mg PO DAILY 07/24/18 07/27/18 omeprazole 20 mg PO BID 07/24/18 07/27/18 atenolol 50 mg PO DAILY 07/27/18 07/27/18 gabapentin 100 mg PO TID 07/27/18 07/27/18 losartan 100 mg PO DAILY 07/27/18 07/27/18 meclizine 25 mg PO BID PRN 07/27/18 07/27/18 Previous Rx's Medication Instructions Recorded amlodipine [Norvasc] 2.5 mg PO DAILY #30 tab 07/24/18 aspirin 81 mg PO DAILY #30 tab 07/24/18 Allergies Allergy/AdvReac Type Severity Reaction Status Date / Time No Known Allergies Allergy Verified 07/27/18 02:07 [facility] Family History Family History Other Family history in first degree relatives is unremarkable Social History Social History Substance History: No History of Abuse Second Hand Smoke Exposure: No Smoking Status: Never smoker How Often Do You Have a Drink Containing Alcohol: Never Recent Travel in [facility] within the Last 8 Weeks: No Recent Out of Country Travel within the Last 8 Weeks: No Exam Narrative Exam Narrative: GENERAL: pt is awake alert hr 110 bp very elevated 230 sbp pt is deaf SKIN: Warm and dry. HEAD: Atraumatic. Normocephalic. EYES: Pupils equal and round. No scleral icterus. No injection or drainage. ENT: No nasal bleeding or discharge. Mucous membranes pink and moist. pt is deaf NECK: Trachea midline. No JVD. CARDIOVASCULAR: Regular rate and rhythm. sinus tachy 106 EKG sinus tachy 100 BPM RESPIRATORY: No accessory muscle use. Clear to auscultation. Breath sounds equal bilaterally. GASTROINTESTINAL: Abdomen soft, non-tender, nondistended. Hepatic and splenic margins not palpable. MUSCULOSKELETAL: Extremities without clubbing, cyanosis, or edema. No obvious deformities. NEUROLOGICAL: Awake and alert. deaf. Motor grossly within normal limits. Five out of 5 muscle strength in the arms and legs. deaf non verbal -- signs PSYCHIATRIC: Appropriate mood and affect; insight and judgment normal. Course Initial Documented Vital Signs Temperature 98.8 F 07/27/18 02:03 Pulse Rate 106 H 07/27/18 02:03 Respiratory Rate 20 07/27/18 02:03 Blood Pressure 234/106 H 07/27/18 02:03 Pulse Oximetry 97 07/27/18 02:03 Last Documented Vital Signs Temperature 98.8 F 07/27/18 02:03 Pulse Rate 75 07/27/18 02:40 Respiratory Rate 20 07/27/18 02:40 Blood Pressure 169/80 H 07/27/18 02:40 Pulse Oximetry 95 07/27/18 02:56 Medical Decision Making Lab Data Result diagrams: 07/27/18 02:00 07/27/18 02:00 Lab Results 07/27/18 07/27/18 07/27/18 Range/Units 02:00 02:00 02:00 CBC w Diff Auto diff final WBC 5.6 (4.0-11.0) th/mm3 RBC 4.39 (4.00-5.30) mil/mm3 Hgb 12.6 (11.6-15.3) gm/dL Hct 37.7 (35.0-46.0) % MCV 85.9 (80.0-100.0) fL MCH 28.7 (27.0-34.0) pg MCHC 33.4 (32.0-36.0) % RDW 13.4 (11.6-17.2) % Plt Count 178 (150-450) th/mm3 MPV 7.9 (7.0-11.0) fL Neut % (Auto) 64.2 (16.0-70.0) % Lymph % (Auto) 26.8 (9.0-44.0) % Keith % (Auto) 6.2 (0.0-8.0) % Eos % (Auto) 1.7 (0.0-4.0) % Baso % (Auto) 1.1 (0.0-2.0) % Neut # (Auto) 3.6 (1.8-7.7) th/mm3 Lymph # (Auto) 1.5 (1.0-4.8) th/mm3 Keith # (Auto) 0.3 (0.0-0.9) th/mm3 Eos # (Auto) 0.1 (0.0-0.4) th/mm3 Baso # (Auto) 0.1 (0.0-0.2) th/mm3 WBC Differential . Differential Comment . Sodium 139 (136-145) meq/L Potassium 3.5 (3.5-5.1) meq/L Chloride 104 (98-107) meq/L Carbon Dioxide 24.2 (21.0-32.0) meq/L Anion Gap 11 (5-15) meq/L BUN 15 (7-18) mg/dL Creatinine 1.00 (0.50-1.00) mg/dL Estimated GFR 54 L (>89) mL/min Random Glucose 107 H (74-106) mg/dL Calcium 8.6 (8.5-10.1) mg/dL Total Bilirubin 0.6 (0.2-1.0) mg/dL AST 20 (15-37) U/L ALT 23 (10-53) U/L Alkaline Phosphatase 122 H (45-117) U/L Troponin I Less than 0.02 L (0.02-0.05) ng/mL B-Natriuretic Peptide 26 (0-100) pg/mL Total Protein 7.9 D (6.4-8.2) g/dL Albumin 3.9 (3.4-5.0) g/dL Imaging Data Radiologist's impression: Chest X-Ray 07/27/18 01:59 CONCLUSION: No acute cardiopulmonary disease identified. Discharge Plan Physicians Team ED Provider: Arian Galvin Primary Care Provider: Farzad Guzman Attending Provider: Sunshine Tomlin Status ED Status: Admitted Observation Patient
[2018-07-27] MEDS ORDERED: amLODIPine 5 MG Tablet PO ONE (04:06)
[2018-07-27 05:03] LABS: Creatine Kinase 159 U/L (26-192)
[2018-07-27 05:09] LABS: Bilirubin,Urine Negative (Negative); Clarity,Urine Clear (Clear); Color,Urine Yellow (Yellw/Straw); Glucose,Urine (UA) Negative (Negative); Leukocyte Esterase,Urine Negative (Negative); Nitrite,Urine Negative (Negative); PH,Urine 5.5 (5.0-8.5); Specific Gravity,Urine Less/Equal 1.005 (1.002-1.035); Urobilinogen,Urine 0.2 mg/dL (Less than 2)
[2018-07-27 05:13] LABS: Bacteria,Urine Moderate /hpf; RBC,Urine 0-3 /hpf (0-3); Squamous Epithelial Cell,Urine 0-5 /hpf (0-5); WBC,Urine 0-5 /hpf (0-5)
[2018-07-27 08:00] LABS: Creatine Kinase 133 U/L (26-192)
[2018-07-27 09:00] VITALS: RESP 20
[2018-07-27] MEDS ORDERED: Atenolol 25 MG Tablet PO SCH (09:00)
--- NOTE | 2018-07-27 10:08 | P.HP ---
History of Present Illness Primary Care Physician: Farzad Guzman MD Chief Complaint: Palpitations and high BP History of Present Illness: This is a 72-year-old female with a known medical history of hypothyroidism, hyperlipidemia, hypertension and deafness who presented to the ED with complaints of palpitations and elevated blood pressure. Patient states that she woke in the middle the night with a heart rate in the 110's and checked her blood pressure which was elevated with systolic in the 200s. Upon presentation her heart rate was 107 and her pressure was 229/107. Patient seen and examined today, heart rate blood pressure more controlled. I saw her 3 days ago here and performed a cardiac stress test for complaints of chest pain, ACS is ruled out and Lexiscan was normal. During the hospitalization her heart rate was in the 40s and 50s throughout the hospitalization despite atenolol being on hold, she was asymptomatic with resolution of her chest pain and symptoms, discharged home and advised to stop atenolol and follow-up with her PCP. This seems to be the cause of her elevation of pressure and heart rate. Will adjust her medications. Continue to monitor over the day and possible discharge in the afternoon. - Diagnosis (1) Palpitations (2) Hx of myocardial infarction Review of Systems All other systems reviewed negative except as stated in HPI PMFSH - History History Provided By: Patient - Medical History Medical History: Medical History (Last Reviewed 07/27/18 @ 10:05 by Suzanne Reagan) History of high blood pressure History of high cholesterol Hx of hysterectomy - Surgical History Surgical History: Surgical History (Last Reviewed 07/27/18 @ 10:05 by Suzanne Reagan) History of bladder surgery Hx of cholecystectomy Status post carpal tunnel release - Family History Family History: Family History (Last Reviewed 07/27/18 @ 10:05 by Suzanne Reagan) Other Family history in first degree relatives is unremarkable - Social History I have reviewed the patient's Social History: Yes - Tobacco History Second Hand Smoke Exposure: No Smoking Status: Never smoker - Alcohol History How Often Do You Have a Drink Containing Alcohol: Never - Substance Use History Substance History: No History of Abuse - Travel History Recent Travel in the [place] Within the Last 8 Weeks: No Recent Travel Out of the Country Within the Last 8 Weeks: No - Immunization History Tetanus Immunization: Unsure Medications and Allergies Active Medications: Active Medications Atenolol (Tenormin) 25 mg PO DAILY [facility] Last Admin: 07/27/18 08:47 Dose: 25 mg Sodium Chloride (Ns Flush) 2 ml IV.FLUSH UNSCH PRN PRN Reason: FLUSH AFTER USING IV ACCESS Sodium Chloride (Ns Flush) 2 ml IV.FLUSH BID [facility] Last Admin: 07/27/18 08:48 Dose: 2 ml Sodium Chloride (Ns Flush) 2 ml IV.FLUSH PRN PRN PRN Reason: FLUSH AFTER USING IV ACCESS Allergies Allergy/AdvReac Type Severity Reaction Status Date / Time No Known Allergies Allergy Verified 07/27/18 02:07 Home Medications Medication Instructions Recorded Confirmed Type doxazosin 2 mg PO DAILY 07/24/18 07/27/18 History levothyroxine 75 mcg PO DAILY 07/24/18 07/27/18 History losartan 100 mg PO DAILY 07/24/18 07/27/18 History lovastatin 40 mg PO DAILY 07/24/18 07/27/18 History omeprazole 20 mg PO BID 07/24/18 07/27/18 History atenolol 50 mg PO DAILY 07/27/18 07/27/18 History gabapentin 100 mg PO TID 07/27/18 07/27/18 History losartan 100 mg PO DAILY 07/27/18 07/27/18 History meclizine 25 mg PO BID PRN 07/27/18 07/27/18 History Exam Vital signs: Vital Signs 07/27/18 02:03 07/27/18 02:06 07/27/18 02:24 Temperature 98.8 F Pulse Rate 106 H 72 66 Respiratory Rate 20 20 20 Blood Pressure 234/106 H 164/73 H 182/81 H Pulse Oximetry 97 95 07/27/18 02:40 07/27/18 02:56 07/27/18 03:48 Temperature Pulse Rate 75 72 Respiratory Rate 20 20 Blood Pressure 169/80 H 173/81 H Pulse Oximetry 75 L 95 07/27/18 04:00 07/27/18 04:30 07/27/18 05:00 Temperature Pulse Rate 74 80 74 Respiratory Rate 20 20 20 Blood Pressure 177/70 H 169/70 H 179/90 H Pulse Oximetry 07/27/18 05:36 07/27/18 05:42 07/27/18 05:43 Temperature 97.2 F L Pulse Rate 76 77 Respiratory Rate 20 18 Blood Pressure 179/90 H 144/65 H Pulse Oximetry 95 95 07/27/18 08:00 Temperature 97.6 F Pulse Rate 70 Respiratory Rate 20 Blood Pressure 140/65 Pulse Oximetry 93 L Intake & Output 07/26/18 07/27/18 07/27/18 18:59 06:59 18:59 Weight 88.4 kg Narrative: GENERAL: Well-developed, well-nourished patient in NAD. Deaf SKIN: Warm and dry. No rash. HEAD: Normocephalic. Atraumatic. EYES: Pupils equal and round. No scleral icterus. No injection or drainage. ENT: No nasal bleeding or discharge. Mucous membranes pink and moist. NECK: Supple. Trachea midline. CARDIOVASCULAR: Regular rate and rhythm. S1, S2 noted. No murmur appreciated. No chest pain on palpation. RESPIRATORY: No accessory muscle use. Clear to auscultation. Breath sounds equal bilaterally. GASTROINTESTINAL: Abdomen soft, non-tender, nondistended. Normoactive bowel sounds x4. MUSCULOSKELETAL: No obvious deformities. Extremities without clubbing, cyanosis , or edema. NEUROLOGICAL: Awake and alert. No obvious cranial nerve deficits. Motor grossly within normal limits. 5/5 muscle strength in bilateral upper and lower extremities. Normal speech. PSYCHIATRIC: Appropriate mood and affect; insight and judgment normal. Results - Labs CBC & Chem 7: 07/27/18 02:00 07/27/18 02:00 Labs: Laboratory Results - last 24 hr 07/27/18 07/27/18 07/27/18 02:00 02:00 02:00 CBC w Diff Auto diff final WBC 5.6 RBC 4.39 Hgb 12.6 Hct 37.7 MCV 85.9 MCH 28.7 MCHC 33.4 RDW 13.4 Plt Count 178 MPV 7.9 Neut % (Auto) 64.2 Lymph % (Auto) 26.8 [place] % (Auto) 6.2 Eos % (Auto) 1.7 Baso % (Auto) 1.1 Neut # (Auto) 3.6 Lymph # (Auto) 1.5 [place] # (Auto) 0.3 Eos # (Auto) 0.1 Baso # (Auto) 0.1 WBC Differential . Differential Comment . Sodium 139 Potassium 3.5 Chloride 104 Carbon Dioxide 24.2 Anion Gap 11 BUN 15 Creatinine 1.00 Estimated GFR 54 L Random Glucose 107 H Calcium 8.6 Total Bilirubin 0.6 AST 20 ALT 23 Alkaline Phosphatase 122 H Total Creatine Kinase Troponin I Less than 0.02 L B-Natriuretic Peptide 26 Total Protein 7.9 D Albumin 3.9 Urine Color Urine Clarity Urine pH Ur Specific [place] Urine Protein Urine Glucose (UA) Urine Ketones Urine Occult Blood Urine Nitrate Urine Bilirubin Urine Urobilinogen Ur Leukocyte Esterase Urine RBC Urine WBC Ur Squamous Epith Cells Urine Bacteria Ur Microscopic Review 07/27/18 07/27/18 07/27/18 04:25 04:49 07:10 CBC w Diff WBC RBC Hgb Hct MCV MCH MCHC RDW Plt Count MPV Neut % (Auto) Lymph % (Auto) [place] % (Auto) Eos % (Auto) Baso % (Auto) Neut # (Auto) Lymph # (Auto) [place] # (Auto) Eos # (Auto) Baso # (Auto) WBC Differential Differential Comment Sodium Potassium Chloride Carbon Dioxide Anion Gap BUN Creatinine Estimated GFR Random Glucose Calcium Total Bilirubin AST ALT Alkaline Phosphatase Total Creatine Kinase 159 133 Troponin I Less than 0.02 L Less than 0.02 L B-Natriuretic Peptide Total Protein Albumin Urine Color Yellow Urine Clarity Clear Urine pH 5.5 Ur Specific [place] Less/equal 1.005 Urine Protein Negative Urine Glucose (UA) Negative Urine Ketones Negative Urine Occult Blood Trace Urine Nitrate Negative Urine Bilirubin Negative Urine Urobilinogen 0.2 Ur Leukocyte Esterase Negative Urine RBC 0-3 Urine WBC 0-5 Ur Squamous Epith Cells 0-5 Urine Bacteria Moderate H Ur Microscopic Review Microscopic reviewed - Imaging Impressions Chest X-Ray 07/27/18 01:59 CONCLUSION: No acute cardiopulmonary disease identified. Caprini VTE Risk Assessment Caprini VTE Risk Assessment: Moderate/High Risk (score >= 2) Caprini Risk Assessment Model: Point Value = 1 Point Value = 2 Point Value = 3 Point Value = 5 Age 41-60 Minor surgery BMI > 25 kg/m2 Swollen legs Varicose veins or History of unexplained or recurrent spontaneous Oral contraceptives or hormone replacement Sepsis (< 1 month) Serious lung disease, including pneumonia (< 1 month) Abnormal pulmonary function Acute myocardial infarction Congestive heart failure (< 1 month) History of inflammatory bowel disease Medical patient at bed rest Age 61-74 Arthroscopic surgery Major open surgery (> 45 min) Laparoscopic surgery (> 45 min) Malignancy Confined to bed (> 72 hours) Immobilizing plaster cast Central venous access Age >= 75 History of VTE Family history of VTE Factor V Leiden Prothrombin [id number] Lupus anticoagulant Anticardiolipin antibodies Elevated serum homocysteine Heparin-induced thrombocytopenia Other congenital or acquired thrombophilia Stroke (< 1 month) Elective arthroplasty Hip, pelvis, or leg fracture Acute spinal cord injury (< 1 month) Prophylaxis Regimen: Total Risk Factor Score Risk Level Prophylaxis Regimen 0-1 Low Early ambulation 2 Moderate Order ONE of the following: *Sequential Compression Device (SCD) *Heparin 5000 units SQ BID 3-4 Higher Order ONE of the following medications: *Heparin 5000 units SQ TID *Enoxaparin/Lovenox 40 mg SQ daily (WT < 150 kg, CrCl > 30 mL/min) *Enoxaparin/Lovenox 30 mg SQ daily (WT < 150 kg, CrCl > 10-29 mL/min) *Enoxaparin/Lovenox 30 mg SQ BID (WT < 150 kg, CrCl > 30 mL/min) AND/OR *Sequential Compression Device (SCD) 5 or more Highest Order ONE of the following medications: *Heparin 5000 units SQ TID (Preferred with Epidurals) *Enoxaparin/Lovenox 40 mg SQ daily (WT < 150 kg, CrCl > 30 mL/min) *Enoxaparin/Lovenox 30 mg SQ daily (WT < 150 kg, CrCl > 10-29 mL/min) *Enoxaparin/Lovenox 30 mg SQ BID (WT < 150 kg, CrCl > 30 mL/min) AND *Sequential Compression Device (SCD) Assessment and Plan - Assessment (1) Palpitations Code(s): R00.2 - Palpitations Status: Acute (2) Hx of myocardial infarction Code(s): I25.2 - Old myocardial infarction Status: Acute - Plan This is a 72-year-old deaf female patient with a known medical history of CAD, hypertension, hyperlipidemia, hypothyroidism who presented to the ED with complaints of palpitations and elevated blood pressure. Palpitations, presented with tachycardia. Resolved. Hypertension, uncontrolled on presentation. Resolved. History of myocardial infarction -Patient complaints of palpitations with heart rate in the 110's as well as elevated blood pressure with systolic in the 200s x 1 day. -Patient was recently DC'd home on 07/24/18 after performing a Lexiscan with resolution of her symptoms. -She was bradycardic at the time and it was thought that this bradycardia may have been a reason for her cardiac complaints that initially brought her into the hospital. -Patient was advised to stop her atenolol and follow up with her PCP. Unfortunately had resultant tachycardia and elevated BP. -On presentation, EKG reviewed showing normal sinus rhythm with a controlled heart rate. -Chest x-ray reviewed, no acute cardiopulmonary disease noted. -ACS ruled out with serial EKGs and serial troponins. Recent stress test on , normal with adequate EF. -Continue on cardiac telemetry, monitor for any arrhythmias. No arrhythmias overnight. -Patient's heart rate and BP are normal now. Will continue her on Atenolol. -Will assess and watch closely over the course of the day with possible DC later this afternoon if HR and BP are stable. Hypothyroidism, chronic: Will continue home levothyroxine. Hyperlipidemia, chronic: Will continue home statin. DVT prophylaxis: SCDs.
[2018-07-27 12:25] VITALS: BP 140/62; TEMP 97.9; O2SAT 95
[2018-07-27 12:48] VITALS: PULSE 62
[2018-07-27] MEDS ORDERED: Gabapentin 100 MG Capsule PO SCH (13:00)
--- NOTE | 2018-07-27 17:12 | ECG ---
Date Performed: 07/27/2018 Time Performed: 07:17:32 PTAGE: 72 years EKG: Sinus rhythm NORMAL ECG PREVIOUS TRACING : 07/27/2018 04.11 Since the previous tracing, no significant change noted DOCTOR: Earl Mann Interpretating Date/Time 07/27/2018 17:10:34
--- NOTE | 2018-07-27 17:20 | ECG ---
Date Performed: 07/27/2018 Time Performed: 04:11:31 PTAGE: 72 years EKG: Sinus rhythm NORMAL ECG PREVIOUS TRACING : 07/27/2018 02.02 Since the previous tracing, no significant change noted DOCTOR: Earl Mann Interpretating Date/Time 07/27/2018 17:19:25
--- NOTE | 2018-07-27 17:27 | ECG ---
Date Performed: 07/27/2018 Time Performed: 02:02:53 PTAGE: 72 years EKG: SINUS TACHYCARDIA ABNORMAL RHYTHM ECG PREVIOUS TRACING : 07/24/2018 09.07 Compared to previous tracing, rate faster DOCTOR: Earl Mann Interpretating Date/Time 07/27/2018 17:25:15
[2018-07-27] MEDS ORDERED: Pantoprazole Sodium 20 MG DR Tablet PO SCH (21:00)
[2018-07-28] MEDS ORDERED: Levothyroxine 75 MCG Tablet PO SCH (09:00)
== END 2018-07-27 15:06 | disposition home or self-care (01) ==
LOC: PHED 01:44 → PHEDA 01:44 → PH3 05:05
PROVIDERS: ADMIT Hospitalist; ATTEND Hospitalist
DX: Z79.82 Long term (current) use of aspirin; E03.9 Hypothyroidism, unspecified; I10 Essential (primary) hypertension; Z79.899 Other long term (current) drug therapy; E78.5 Hyperlipidemia, unspecified; I25.10 Atherosclerotic heart disease of native coronary artery without angina pectoris; H91.93 Unspecified hearing loss, bilateral; R00.2 Palpitations; I25.2 Old myocardial infarction